=== PATIENT | male | born 1955 | race Caucasian/White ===

== ENCOUNTER 2018-09-20 16:56 | Emergency (ER) | payer BC ==
[~2018-09-20] VITALS: Ht 180.3 cm; Wt 78.5 kg
[2018-09-20] MEDS ORDERED: DIOVAN (17:10)
[2018-09-20] MEDS ORDERED: NORCO (17:10)
[2018-09-20] MEDS ORDERED: ADDERALL (17:10)
[2018-09-20] MEDS ORDERED: HYDROMORPHONE 1 MG/1 ML DISP.SYRIN IV ONE (17:30)
[2018-09-20] MEDS ORDERED: ONDANSETRON 4 MG/2 ML VIAL IV ONE (17:30)
[2018-09-20] MEDS ORDERED: ONDANSETRON 4 MG/2 ML VIAL ONE (17:30)
[2018-09-20] MEDS ORDERED: HYDROMORPHONE 1 MG/1 ML DISP.SYRIN ONE (17:30)
--- NOTE | 2018-09-20 18:51 | NUR ---
IV removed. Catheter intact and site benign. Pressure and 4x4 gauze applied to site. No bleeding noted. Patient discharged to home in stable conditon. Written and verbal after care instructions given to patient and patient's son. Patient and family verbalized understanding of instructions. Patient left ER with steady gait.
== END 2018-09-20 18:54 | disposition home or self-care (01) ==
LOC: ER 16:59
DX: S42.292A Other displaced fracture of upper end of left humerus, initial encounter for closed fracture (principal); I10 Essential (primary) hypertension; W11.XXXA Fall on and from ladder, initial encounter; Y93.89 Activity, other specified; Y92.89 Other specified places as the place of occurrence of the external cause; Y99.8 Other external cause status
CPT/HCPCS: 29105; 72125; 73030; 96374; 96375; 99284; J1170; J2405; A4663

== ENCOUNTER 2020-07-19 15:56 | Emergency (ER) | payer BC ==
[~2020-07-19] VITALS: Ht 180.3 cm; Wt 79.4 kg
[~2020-07-19 15:56] MED LIST: ADDERALL; DIOVAN; NORCO
[2020-07-19 16:28] LABS: BASOPHILS % (AUTO) 0.5 % (0.0-2.0); EOSINOPHILS % (AUTO) 0.4 % (0.0-7.0); HEMATOCRIT 44.3 % (36.7-47.1); HEMOGLOBIN 14.8 g/dL (12.5-16.3); LYMPHOCYTES % (AUTO) 12.8 % (20.5-51.5); MEAN CORPUSCULAR HGB CONC 33 g/dL (32.5-36.3); MONOCYTES # (AUTO) 0.7 K/uL (2.0-10.0); MONOCYTES % (AUTO) 8.7 % (0.0-11.0); NEUTROPHILS % (AUTO) 77.6 % (38.5-71.5); PLATELET COUNT (AUTO) 252 K/uL (152-348); RED BLOOD CELL COUNT(AUTO) 4.92 MIL/uL (4.06-5.63); WHITE BLOOD COUNT (AUTO) 7.7 K/uL (3.6-10.2)
[2020-07-19 16:53] LABS: BILIRUBIN,DIRECT 0.2 mg/dL (0.0-0.2); BILIRUBIN,TOTAL 1.3 mg/dL (0.2-1.0); CREATININE 1.3 mg/dL (0.6-1.3); TOTAL PROTEIN, SERUM 7.8 g/dL (6.4-8.2)
--- NOTE | 2020-07-19 16:54 | NUR ---
PT IS IN ROOM #1A. DR PERALTA EVALUATED THE PT.
[2020-07-19 16:57] LABS: POTASSIUM 2.6 mmol/L (3.5-5.1)
[2020-07-19] MEDS ORDERED: POTASSIUM CHLORIDE 20 MEQ TAB.PRT.SR PO ONE (17:30)
[2020-07-19] MEDS ORDERED: POTASSIUM CHLORIDE 20 MEQ TAB.PRT.SR ONE (17:44)
--- NOTE | 2020-07-19 19:04 | NUR ---
REPORT GIVEN TO MANAGER PAID RN.
--- NOTE | 2020-07-19 19:13 | NUR ---
Received report from RYAN Koroma. Assumed care of patient at this time. Repeat troponin drawn & sent to lab. Pending results. Patient denies any chest pain right now. Appears in no apparent distress. Will continue to monitor.
--- NOTE | 2020-07-19 19:38 | NUR ---
Patient signed AMA form. Patient discharged to home in stable condition. Written and verbal after care instructions given. Patient verbalizes understanding of instructions. Stressed follow up or return to ER for worsening s/s. IV removed. Catheter intact and site benign. Pressure and 4x4 gauze applied to site. No bleeding noted.
[2020-07-19 19:39] VITALS: BP 147/72
== END 2020-07-19 19:39 | disposition left against medical advice (07) ==
LOC: ER 15:59
DX: R07.9 Chest pain, unspecified (principal); E87.6 Hypokalemia; I10 Essential (primary) hypertension; E78.00 Pure hypercholesterolemia, unspecified; F41.0 Panic disorder [episodic paroxysmal anxiety]; M79.7 Fibromyalgia; F90.9 Attention-deficit hyperactivity disorder, unspecified type; Z79.899 Other long term (current) drug therapy; R00.0 Tachycardia, unspecified; Z82.49 Family history of ischemic heart disease and other diseases of the circulatory system
CPT/HCPCS: 36415; 70030-TC; 71045; 85025; 93005; A4663